=== PATIENT | female | born 1975 | race Caucasian/White ===

== ENCOUNTER 2018-09-26 03:30 | Emergency (ER) | payer BC ==
[2018-09-26] MEDS: FAMOTIDINE 20 MG INJ IV (04:03)
[2018-09-26] MEDS: METHYLPREDNISOLONE 125 MG INJ IV (04:03)
== END 2018-09-26 05:41 | disposition home or self-care (01) ==
LOC: E/R 03:30
DX: R60.0 Localized edema (principal)
CPT/HCPCS: 96374; 96375; 99284-25